=== PATIENT | male | born 1990 | race Two or more races ===

== ENCOUNTER 2024-08-06 21:48 | Emergency (ER) | payer OTHER ==
[~2024-08-06] VITALS: Ht 182.9 cm; Wt 97.5 kg
[2024-08-06] MEDS ORDERED: ACID REDUCER20 M1 PO (22:33)
[2024-08-07 00:35] LABS: COVID-19 AG NEGATIVE (NEGATIVE)
[2024-08-07] MEDS ORDERED: DOLOGESIC-DF 51 EACH PO (01:16)
[2024-08-07] MEDS ORDERED: ZYNCOF 20-400120 ML PO (01:16)
== END 2024-08-07 01:24 ==
LOC: ER 23:06
PROVIDERS: General Practice
DX: J06.9 Acute upper respiratory infection, unspecified (principal); Z20.822 Contact with and (suspected) exposure to COVID-19; Z88.6 Allergy status to analgesic agent

== ENCOUNTER 2024-10-01 23:29 | Emergency (ER) | payer OTHER ==
[~2024-10-01] VITALS: Ht 182.9 cm; Wt 95.3 kg
[~2024-10-01 23:29] MED LIST: ACID REDUCER20 M1 PO; DOLOGESIC-DF 51 EACH PO; ZYNCOF 20-400120 ML PO
[2024-10-01 23:47] VITALS: O2SAT 99
[2024-10-02] MEDS ORDERED: ACETAMINOPHEN 500 MG GEL..CAP PO STA (00:29)
[2024-10-02] MEDS ORDERED: NIFEDIPINE 10 MG CAPSULE PO STA (00:29)
[2024-10-02] MEDS ORDERED: ACETAMINOPHEN 500 MG GEL..CAP PO ONE (00:48)
[2024-10-02] MEDS ORDERED: NIFEDIPINE 10 MG CAPSULE PO ONE (00:48)
[2024-10-02 01:15] LABS: BASO % 0.5 % (0.1-1.2); EOS # 0.18 (0.04-0.54); EOS % 3.1 % (0.7-7.0); LYMPH # 2.24 (1.18-3.74); LYMPH % 39.2 % (19.3-53.1); MEAN PLATELET VOLUME 10.10 fl (9.4-12.4); MONO # 0.65 (0.24-0.82); MONO % 11.4 % (4.7-12.5); NEUT # 2.61 (1.56-6.13); NEUT % 45.6 % (34.0-71.1); RED CELL DISTRIBUTION WIDTH 13.9 % (11.6-14.4)
[2024-10-02 01:37] LABS: ALT/SGPT 62.0 U/L (12-78); AST/SGOT 30.0 U/L (15-37); BILIRUBIN TOTAL 0.2 mg/dL (0.3-1.2); BUN CREA RATIO 19.0 (7.0-25.0); CREATININE SERUM 0.86 mg/dL (0.70-1.30); GLOBULINA 3.8 G/DL (2.4-3.5); GLUCOSE FASTING 104.0 mg/dL (65-100); OSMOLALITY SERUM 277.0 MOSM/KG (275-295)
[2024-10-02 01:40] LABS: GFR 103.72
[2024-10-02 01:50] LABS: URINE APPEARANCE Clear; URINE BILIRRUBIN Negative (NEGATIVE); URINE BLOOD Negative; URINE COLOR Yellow; URINE GLUCOSE Negative (NEGATIVE); URINE KETONE Negative (NEGATIVE); URINE LEUKOCYTE Negative; URINE NITRATE Negative; URINE PROTEIN Negative (NEGATIVE); URINE UROBILINOGEN 0.2 E.U./dl
[2024-10-02 01:59] LABS: URINE BACTERIA 2.3 uL (0.0-1933); URINE CAST 0.00 uL (0.0-1.40); URINE EPITHELIAL CELLS 0.6 uL (0.0-38.8); URINE RBC 0.4 uL (0.0-20.8); URINE WBC 0.9 uL (0.0-23.2)
[2024-10-02] MEDS ORDERED: NIFEDIPINE ER30 M1 PO (04:03)
[2024-10-02 04:41] VITALS: BP 132/82
== END 2024-10-02 04:42 ==
LOC: ER 23:33
PROVIDERS: General Practice
DX: I10 Essential (primary) hypertension (principal); Z88.6 Allergy status to analgesic agent

== ENCOUNTER 2024-10-21 20:58 | Emergency (ER) | payer OTHER ==
[~2024-10-21] VITALS: Ht 182.9 cm; Wt 90.7 kg
[~2024-10-21 20:58] MED LIST changes: +NIFEDIPINE ER30 M1 PO
[2024-10-21] MEDS ORDERED: TETANUS & DIPHTHERIA TOX,ADULT 0.5 ML VIAL IM STA (22:23)
[2024-10-21] MEDS ORDERED: CEFAZOLIN SODIUM 1,000 MG VIAL IM STA (22:23)
== END 2024-10-21 22:44 | disposition home or self-care (01) ==
LOC: ER 20:58
DX: S60.413A Abrasion of left middle finger, initial encounter (principal); W26.0XXA Contact with knife, initial encounter; Y93.89 Activity, other specified; Y92.89 Other specified places as the place of occurrence of the external cause; Y99.8 Other external cause status; Z88.6 Allergy status to analgesic agent
CPT/HCPCS: 90471; 90714; J1670

== ENCOUNTER 2024-10-23 10:22 | Outpatient (CLI) | payer OTHER | END 2024-10-23 10:36 | disposition home or self-care (01) | LOC: MRI 10:22 | PROVIDERS: ATTEND Neuromusculoskeletal Medicine & OMM | DX: R51.9 Headache, unspecified (principal); G43.009 Migraine without aura, not intractable, without status migrainosus | CPT/HCPCS: 70553 ==

== ENCOUNTER 2024-10-28 14:01 | Outpatient (CLI) | payer OTHER | END 2024-10-28 14:05 | disposition home or self-care (01) | LOC: TOM 14:01 | PROVIDERS: ATTEND Neuromusculoskeletal Medicine & OMM | DX: I67.1 Cerebral aneurysm, nonruptured (principal); Q28.2 Arteriovenous malformation of cerebral vessels ==

== ENCOUNTER 2024-11-04 19:53 | Inpatient (IN) | payer OTHER ==
[~2024-11-04] VITALS: Ht 152.4 cm; Wt 90.7 kg
--- NOTE | 2024-11-04 20:05 | NUR ---
PTE ALERTA Y ORIENTADO X 3 ESFERAS EN AMBULANCIA EN COMPANIA DE FAMILIAR QUIEN REFIERE PRESENTO PALPITACIONES 160,PARAMEDICOS REFIEREN FLUTTER,CANALIZAN EN ANTEBRAZO LT Y ADMINISTRAN CORDARONE 150MG IV Y LUEGO PTE PRESENTO 137.SE RIANNA S/V Y SE REALIZA EKG 126P PRESENTADO A DR QUEZADA QUIEN INDICA UBICARLO CON MONITOR CARDIACO.
[2024-11-04] MEDS ORDERED: ATORVASTATIN CA10 MG (20:08)
[2024-11-04] MEDS ORDERED: DILTIAZEM HCL 125MG/25ML VIAL IV SCH (20:15)
[2024-11-04 22:25] LABS: BASO % 0.5 % (0.1-1.2); EOS # 0.19 (0.04-0.54); EOS % 3.1 % (0.7-7.0); LYMPH # 1.95 (1.18-3.74); LYMPH % 32.2 % (19.3-53.1); MEAN PLATELET VOLUME 10.20 fl (9.4-12.4); MONO # 0.54 (0.24-0.82); MONO % 8.9 % (4.7-12.5); NEUT # 3.32 (1.56-6.13); NEUT % 55.0 % (34.0-71.1); RED CELL DISTRIBUTION WIDTH 13.9 % (11.6-14.4)
--- NOTE | 2024-11-04 22:25 | NUR ---
SE ORIENTA A PACIENTE SOBRE ORDEN MEDICA EL MISMO REFIERE ENTENDER Y ACEPTAR.
[2024-11-04 22:44] LABS: INR 1.02
[2024-11-04 22:52] LABS: ALT/SGPT 53.0 U/L (12-78); AST/SGOT 23.0 U/L (15-37); BILIRUBIN TOTAL 0.36 mg/dL (0.3-1.2); BUN CREA RATIO 9.0 (7.0-25.0); CREATININE SERUM 0.98 mg/dL (0.70-1.30); GFR 88.64; GLOBULINA 3.9 G/DL (2.4-3.5); GLUCOSE FASTING 106.0 mg/dL (65-100); OSMOLALITY SERUM 271.0 MOSM/KG (275-295)
[2024-11-04 23:00] LABS: TSH 1.6 uIU/mL (0.358-3.74)
[2024-11-04] MEDS ORDERED: METOPROLOL SUCCINATE 25 MG TAB.SR.24H PO STA (23:04)
--- NOTE | 2024-11-04 23:34 | NUR ---
SE RECIBE PACIENTE MASCULINO DE 34 Y/0 AOCSTADO EN CAMA EN UNIDDAD DE ICU-2 ALERTA Y ORIENTADO X3. EL MISMO SE ENCUENTR ABAJO MONITOREO CARDIACO Y OXIMETRIA DE PULSO CON MONITOREO DE S/V CADA 1 HORA. PACIENTE CON DOS ACCESO VENOSO VIA PERIFERAL BRAZO VI PATENTE [place] DE EDEMA Y ERITEMA. REFIERE NO TENER DOLOR ALGUNO DE NINGUNA INDOLE. SE ABDOMEN DEPRESIBLE AL TACTO CON PERISTALSIS PRESENTE Y EXTREMIDADES INFERIORES [place] DE EDEMA.
[2024-11-04] MEDS ORDERED: DILTIAZEM HCL 25 MG/5 ML VIAL IV STA (23:38)
[2024-11-04] MEDS ORDERED: DILTIAZEM HCL 25 MG/5 ML VIAL IV ONE ×2 (23:40→23:46)
[2024-11-05] MEDS ORDERED: DILTIAZEM HCL 125 MG in DEXTROSE 5 % IN WATER 125 ML IV SCH (00:30)
[2024-11-05] MEDS ORDERED: FAMOTIDINE/PF 20 MG/2 ML VIAL ONE (01:48)
[2024-11-05] MEDS ORDERED: FAMOTIDINE/PF 20 MG/2 ML VIAL IV STA (02:04)
[2024-11-05] MEDS ORDERED: DILTIAZEM HCL 125 MG in 0.9 % SODIUM CHLORIDE 100 ML IV SCH (07:00)
--- NOTE | 2024-11-05 07:24 | NUR ---
SE RECIBE PTE DEL TURNO ANTERIOR ALERTA Y ORIENTADO X3 EN LA UNIDAD DE CRITICO PIPPA DE EMERGENCIA EN CAMA #3 CONECTADO A MONITOR CARDIACO Y OXIMETRIA CONTINUA CON BARANDAS ELEVADAS EN POSICION SEMI RAI. PTE CANALIZADO X2 CON ANGIOS #18 AMBOS PATENTES CON DRIP DE CARDIZEM BAJANDO A 3MLS/HR. ABDOMEN DEPRESIBLE AL TACTO. EXTREMIDADES INFERIORES [place] DE EDEMA Y ERITEMA
[2024-11-05] MEDS ORDERED: ACETAMINOPHEN 500 MG GEL..CAP PO PRN (08:30)
[2024-11-05] MEDS ORDERED: SODIUM CHLORIDE 0.45 % 1,000 ML IV SCH (08:30)
[2024-11-05] MEDS ORDERED: ENOXAPARIN SODIUM 40 MG/0.4 ML SYRINGE SUBCUTANEO SCH (09:00)
[2024-11-05] MEDS ORDERED: PANTOPRAZOLE SODIUM 40 MG/VIAL VIAL IV PUSH SCH (09:00)
[2024-11-05] MEDS ORDERED: CLONAZEPAM 0.5 MG TABLET PO SCH (09:00)
[2024-11-05] MEDS ORDERED: METOPROLOL SUCCINATE 25 MG TAB.SR.24H PO SCH (09:00)
[2024-11-05] MEDS ORDERED: ENOXAPARIN SODIUM 60 MG/0.6 ML SYRINGE SUBCUTANEO ONE ×2 (09:53→20:18)
[2024-11-05 15:38] VITALS: BP 150/87; O2SAT 98
[2024-11-05 19:15] VITALS: O2SAT 95
[2024-11-05] MEDS ORDERED: ENOXAPARIN SODIUM 60 MG/0.6 ML SYRINGE SUBCUTANEO SCH (21:00)
[2024-11-05 22:11] VITALS: BP 140/90
[2024-11-06] VITALS (10 sets, daily range): BP systolic 125–169; BP diastolic 80–100; O2SAT 96–99
[2024-11-06 05:48] LABS: ALT/SGPT 57 U/L (12-78); AST/SGOT 24 U/L (15-37); BILIRUBIN TOTAL 0.57 mg/dL (0.3-1.2); BUN CREA RATIO 10 (7.0-25.0); CHOL HDL RATIO 6.1 (0-5.0); CREATININE SERUM 1.00 mg/dL (0.70-1.30); GFR 86.59; GLOBULINA 3.5 G/DL (2.4-3.5); GLUCOSE FASTING 95 mg/dL (65-100); HDL 35 mg/dl (40-60); OSMOLALITY SERUM 273 MOSM/KG (275-295)
[2024-11-06 05:49] LABS: LDL 95 mg/dl (0-130); VLDL 81 (0-39)
[2024-11-06 06:14] LABS: BASO % 1.0 % (0.1-1.2); EOS # 0.20 (0.04-0.54); EOS % 3.9 % (0.7-7.0); LYMPH # 2.98 (1.18-3.74); LYMPH % 58.1 % (19.3-53.1); MEAN PLATELET VOLUME 10.00 fl (9.4-12.4); MONO # 0.46 (0.24-0.82); MONO % 9.0 % (4.7-12.5); NEUT # 1.43 (1.56-6.13); NEUT % 27.8 % (34.0-71.1); RED CELL DISTRIBUTION WIDTH 14.7 % (11.6-14.4)
[2024-11-07] VITALS (7 sets, daily range): BP systolic 115–140; BP diastolic 78–80; O2SAT 95–98
== END 2024-11-07 17:02 | disposition home or self-care (01) | DRG 310 ==
LOC: ER 19:53 → MEDJ 11-05 08:31 → SEC-K 11-05 08:31 → MEDI 11-05 12:56 → SEC-K 11-05 13:09 → MEDJ 11-05 13:13 → SEC-K 11-05 13:27 → MEDJ 11-05 16:26
PROVIDERS: Physician Assistant Medical; ADMIT Internal Medicine; ATTEND Internal Medicine
PROC: BW24YZZ Computerized Tomography (CT Scan) of Chest and Abdomen using Other Contrast (ICD-10-PCS; principal; 2024-11-05)
PROC: B24BYZZ Ultrasonography of Heart with Aorta using Other Contrast (ICD-10-PCS; 2024-11-05)
PROC: 4A12XM4 Monitoring of Cardiac Stress, External Approach (ICD-10-PCS; 2024-11-06)
DX: I48.91 Unspecified atrial fibrillation (principal); I49.9 Cardiac arrhythmia, unspecified